=== PATIENT | male | born 1980 | race Caucasian/White ===

== ENCOUNTER 2019-09-08 19:55 | Emergency (ER) | payer SELFPAY ==
[~2019-09-08] VITALS: Ht 177.8 cm; Wt 113.4 kg
[2019-09-08 19:58] VITALS: BP 156/92
[2019-09-08] MEDS ORDERED: cefTRIAXone SOD 1,000 MG VL IM ONE (21:45)
== END 2019-09-08 22:09 | disposition home or self-care (01) ==
LOC: ER 19:58
DX: S60.561A Insect bite (nonvenomous) of right hand, initial encounter (principal); I25.2 Old myocardial infarction; F17.210 Nicotine dependence, cigarettes, uncomplicated; I10 Essential (primary) hypertension; W57.XXXA Bitten or stung by nonvenomous insect and other nonvenomous arthropods, initial encounter; Y93.89 Activity, other specified; Y99.8 Other external cause status; Y92.89 Other specified places as the place of occurrence of the external cause
CPT/HCPCS: 96372; 99283; J0696